=== PATIENT | female | born 1985 | race Caucasian/White ===

== ENCOUNTER → 2021-06-16 | Outpatient (CLI) | payer OTHER | LOC: M LABSMTC 11:03 | PROVIDERS: ATTEND Obstetrics & Gynecology Reproductive Endocrinology | DX: Z11.59 Encounter for screening for other viral diseases (principal) ==

== ENCOUNTER → 2022-09-07 | Outpatient (REF) | payer OTHER | LOC: M LAB REF 13:31 | PROVIDERS: ATTEND Internal Medicine Gastroenterology | DX: R19.4 Change in bowel habit (principal) ==

== ENCOUNTER → 2022-09-08 | Outpatient (CLI) | payer OTHER ==
[2022-09-08 14:29] LABS: FREE T4 1.07 NG/DL (0.89-1.76)
[2022-09-08 14:30] LABS: ALBUMIN 4.5 G/DL (3.2-5.2); ALKALINE PHOSPHATASE 52 U/L (46-116); ALT/SGPT 13 U/L (7.0-40); AST/SGOT < 8 U/L (<34); BILIRUBIN,DIRECT 0.2 MG/DL (<0.4); BILIRUBIN,TOTAL 0.5 MG/DL (0.3-1.2); THYROID STIMULATING HORMONE 1.577 uIU/ML (0.55-4.78); TOTAL PROTEIN 7.4 G/DL (5.7-8.2)
== END ==
LOC: M LAB 13:10
PROVIDERS: ATTEND Internal Medicine Gastroenterology
DX: R19.4 Change in bowel habit (principal)

== ENCOUNTER → 2022-09-21 | Outpatient (CLI) | payer OTHER | LOC: M RAD 08:12 | PROVIDERS: ATTEND Internal Medicine Gastroenterology | DX: R93.2 Abnormal findings on diagnostic imaging of liver and biliary tract (principal); R16.0 Hepatomegaly, not elsewhere classified ==

== ENCOUNTER → 2024-01-11 | Outpatient (CLI) | payer OTHER ==
[~2024-01-11] MED LIST: CREO3600; DICY-61; PROHANCE 279.3MG/ML 15ML VIAL ONE; VITA100093 PO
== END ==
LOC: M PLAIMG 14:39
PROVIDERS: ATTEND Internal Medicine Gastroenterology
DX: K86.81 Exocrine pancreatic insufficiency (principal); R16.0 Hepatomegaly, not elsewhere classified
CPT/HCPCS: 74183; A9576

== ENCOUNTER → 2024-03-10 | Outpatient (CLI) | payer OTHER ==
[~2024-03-10] MED LIST changes: -PROHANCE 279.3MG/ML 15ML VIAL ONE
== END ==
LOC: M RAD 07:47
PROVIDERS: ATTEND Internal Medicine Gastroenterology
DX: R93.2 Abnormal findings on diagnostic imaging of liver and biliary tract (principal); R16.0 Hepatomegaly, not elsewhere classified

== ENCOUNTER 2024-08-28 07:27 | Day surgery (SDC) | payer OTHER ==
[~2024-08-28] VITALS: Ht 165.1 cm; Wt 71.6 kg
[~2024-08-28 07:27] MED LIST changes: -CREO3600; +CREO3600 PO; +DICY1CAP8 PO
[2024-08-28] MEDS ORDERED: LR 1,000 ML IV SCH (07:55)
[2024-08-28] MEDS ORDERED: ROCURONIUM BROMIDE 50MG/5ML VIAL As Ordered ONE (08:16)
[2024-08-28] MEDS ORDERED: LIDOCAINE 2% 100 MG/5 ML SDV (FOR ANES.) As Ordered ONE (08:16)
[2024-08-28] MEDS ORDERED: SUGAMMADEX SODIUM 200 MG/2 ML VIAL As Ordered ONE (08:17)
[2024-08-28] MEDS ORDERED: ONDANSETRON 4MG 2ML VIAL As Ordered ONE (08:17)
[2024-08-28] MEDS ORDERED: dexAMETHasone 4 MG/ML 1 ML VIAL As Ordered ONE (08:17)
[2024-08-28] MEDS ORDERED: ACETAMINOPHEN 1000MG/100ML IV BAG As Ordered ONE (08:17)
[2024-08-28] MEDS ORDERED: MIDAZOLAM INJ 2 MG/2 ML VIAL As Ordered ONE (08:18)
[2024-08-28] MEDS ORDERED: SUGAMMADEX SODIUM 500 MG/5 ML VIAL As Ordered ONE (09:35)
[2024-08-28] MEDS: ONDANSETRON 4MG 2ML VIAL IV PRN (10:10)
[2024-08-28] MEDS: HYDROMORPHONE HCL 0.5 MG/0.5 ML SYRINGE IV PRN (10:21)
[2024-08-28 11:30] VITALS: BP 133/80; TEMP 98.2; O2SAT 99
== END 2024-08-28 11:39 | disposition home or self-care (01) ==
LOC: M SDC 07:27
PROVIDERS: ATTEND Surgery
DX: K80.10 Calculus of gallbladder with chronic cholecystitis without obstruction (principal); R16.0 Hepatomegaly, not elsewhere classified; Z79.899 Other long term (current) drug therapy; F17.210 Nicotine dependence, cigarettes, uncomplicated; Z88.6 Allergy status to analgesic agent; Z91.040 Latex allergy status; Z91.048 Other nonmedicinal substance allergy status

== ENCOUNTER → 2024-12-20 | Outpatient (REF) | payer OTHER | LOC: M LAB REF 10:00 | PROVIDERS: ATTEND Internal Medicine Gastroenterology | DX: R19.7 Diarrhea, unspecified (principal) ==

== ENCOUNTER → 2024-12-21 | Outpatient (CLI) | payer OTHER | LOC: M LAB 11:44 | PROVIDERS: ATTEND Internal Medicine Gastroenterology | DX: R63.4 Abnormal weight loss (principal); R19.7 Diarrhea, unspecified ==